=== PATIENT | female | born 2000 | race Caucasian/White ===

== ENCOUNTER 2019-03-26 16:31 | Emergency (ER) | payer MEDICAID, OTHER ==
[~2019-03-26] VITALS: Ht 162.6 cm; Wt 67.1 kg
[2019-03-26] MEDS ORDERED: ACETAMINOPHEN 650 mg PER 20 mL UD PO ONE (17:15)
[2019-03-26 18:31] VITALS: BP 137/81
[2019-03-26] MEDS ORDERED: cefTRIAXone SOD 1,000 MG VL IM ONE (21:30)
[2019-03-26] MEDS ORDERED: ACETAMINOPHEN 325 MG TAB PO ONE (21:30)
== END 2019-03-26 21:36 | disposition home or self-care (01) ==
LOC: ER 16:41
DX: J02.9 Acute pharyngitis, unspecified (principal)
CPT/HCPCS: 96372; 99283; J0696

== ENCOUNTER 2021-08-30 12:54 | Emergency (ER) | payer OTHER ==
[~2021-08-30] VITALS: Ht 162.6 cm; Wt 75.7 kg
[2021-08-30 14:18] VITALS: BP 128/81
[2021-08-30] MEDS ORDERED: ONDANSETRON HCL 4 MG/2 ML VIAL IV ONE (14:30)
[2021-08-30] MEDS ORDERED: SODIUM CHLORIDE 0.9% 1,000 ML IV ONE (14:30)
[2021-08-30] MEDS ORDERED: ACETAMINOPHEN 325 MG TAB PO ONE (17:00)
[2021-08-30] MEDS ORDERED: CEPH500C PO (18:52)
== END 2021-08-30 19:03 | disposition home or self-care (01) ==
LOC: ER 12:54
DX: O29.41 Spinal and epidural anesthesia induced headache during pregnancy, first trimester (principal); O23.41 Unspecified infection of urinary tract in pregnancy, first trimester; Z3A.01 Less than 8 weeks gestation of pregnancy
CPT/HCPCS: 36415; 76801; 76817; 84702; 96361; 96374; 99284; J2405; J7030